=== PATIENT | female | born 1965 | race Caucasian/White ===

== ENCOUNTER 2023-11-12 10:10 | Inpatient (IN) ==
[2023-11-12 11:20] LABS: Hematocrit 39.3 % (35-45); Hemoglobin 13.1 g/dL (11.5-14.3); Mean Corpuscular Hemoglobin 31.2 pg (27-33); Mean Corpuscular Hgb Conc 33.3 g/dL (31-36); Mean Corpuscular Volume 93.8 fL (80-97); Red Blood Count 4.19 10^6/uL (3.63-4.92); Red Cell Distribution Width 13.7 % (12-17); White Blood Count 6.3 10^3/uL (3.8-11.8)
[2023-11-12 11:26] LABS: Urine Appearance Clear; Urine Bilirubin Negative (Negative); Urine Blood Negative (Negative); Urine Color Colorless; Urine Glucose Negative (Negative); Urine Ketones Negative (Negative); Urine Nitrite Negative (Negative); Urine Protein Negative (Negative); Urine Specific Gravity 1.007 (1.002-1.030); Urine Urobilinogen Negative (Negative); Urine pH 6.5 (5.0-8.0)
[2023-11-12 11:38] LABS: Urine Benzodiazepine Screen None Detected (None Detect); Urine Cannabinoids Screen None Detected (None Detect); Urine Opiates Screen None Detected (None Detect)
[2023-11-12 11:47] LABS: ABS Basophils 0.1 10^3/uL (0.0-0.1); ABS Eosinophils 0.1 10^3/uL (0.0-0.5); ABS Lymphocytes 1.4 10^3/uL (1.0-4.8); ABS Monocytes 0.5 10^3/uL (0.0-0.9); ABS Neutrophils 4.3 10^3/uL (1.5-7.6); Eosinophil % 1.2 %; Lymphocyte % 22.1 %; Mean Platelet Volume 8.9 fL (7.5-11.2); Platelet Count 178 10^3/uL (150-450)
[2023-11-12 12:08] LABS: ALT 9 U/L (7-52); AST 17 U/L (13-39); Acetaminophen < 15 mcg/mL; Albumin 4.7 g/dL (3.2-5.2); Albumin/Globulin Ratio 2.2 (1-3); Alcohol, S < 13 mg/dL (<13); Alkaline Phosphatase 74 U/L (35-149); Anion Gap 7 mmol/L (2-16); Blood Urea Nitrogen 12 mg/dL (6-24); CO2 Carbon Dioxide 27 mmol/L (22-32); Calcium 9.4 mg/dL (8.6-10.3); Chloride 104 mmol/L (101-111); Creatinine, Serum 0.74 mg/dL (0.51-0.95); Globulin 2.1 g/dL (2-4); Glucose 93 mg/dL (70-100); Potassium 4.3 mmol/L (3.5-5.0); Salicylate < 2.50 mg/dL (<30); Sodium 138 mmol/L (135-145); Total Bilirubin 0.4 mg/dL (0.2-1.0); Total Protein 6.8 g/dL (6.4-8.9); eGFR CKD-EPI 94.9 (>60)
[2023-11-12 12:22] LABS: TSH Ultra Thyroid Stim Horm 1.65 mcIU/mL (0.34-5.60)
[2023-11-12] MEDS ORDERED: Al Hydrox/Mg Hydrox/Simet LIQ 30 ML UDC PO PRN (14:10)
[2023-11-17] MEDS ORDERED: OLANZapine 5 mg TAB *ODT PO PRN (12:21)
[2023-11-18 11:43] LABS: HDL Cholesterol 46.1 mg/dL
[2023-11-23 09:07] VITALS: BP 97/61
== END 2023-11-23 10:14 | disposition home or self-care (01) | DRG 751 ==
LOC: ED 10:10 → BSU 14:10
PROVIDERS: ADMIT Student in an Organized Health Care Education/Training Program; ATTEND Student in an Organized Health Care Education/Training Program